=== PATIENT | female | born 1985 | race Two or more races ===

== ENCOUNTER 2023-05-23 15:56 | Emergency (ER) | payer OTHER ==
[~2023-05-23] VITALS: Ht 160 cm; Wt 72.6 kg
[2023-05-23] MEDS ORDERED: ATIVAN0.5 M1 PO (16:21)
[2023-05-23] MEDS ORDERED: ZOVIRAX400 MG PO (16:21)
[2023-05-23] MEDS ORDERED: CLOZARIL25 MG (16:21)
[2023-05-23] MEDS ORDERED: COL-RITE100 MG PO (16:22)
[2023-05-23] MEDS ORDERED: OXYBUTYNIN CHLOR5 M1 PO (16:22)
[2023-05-23] MEDS ORDERED: LAMOTRIGINE250 MG PO (16:22)
[2023-05-23] MEDS ORDERED: CLARITIN5 MG (16:22)
[2023-05-23 19:06] LABS: HEMATOCRIT 40.2 % (36.0-45.00); HEMOGLOBIN 13.7 g/dL (12.0-15.00); MEAN CELL VOLUME 89.9 fL (80.00-100.00); MEAN CORPUSCULAR HEMOGLOBIN 30.6 pg (27.00-32.0); PLATELET COUNT 222 K/uL (150-450); RED BLOOD COUNT 4.47 M/uL (4.00-6.00); RED CELL DISTRIBUTION WIDTH 12.8 % (11.5-14.5)
[2023-05-23 20:10] LABS: URINE APPEARANCE Clear; URINE BILIRRUBIN Negative (NEGATIVE); URINE BLOOD Trace; URINE COLOR Yellow; URINE GLUCOSE Negative (NEGATIVE); URINE LEUKOCYTE Negative; URINE NITRATE Negative; URINE PROTEIN Negative (NEGATIVE); URINE UROBILINOGEN 0.2 E.U./dl
[2023-05-23 20:13] LABS: URINE BACTERIA 1143.9 uL (0.0-1933); URINE EPITHELIAL CELLS 30.9 uL (0.0-38.8); URINE RBC 22.8 uL (0.0-20.8); URINE WBC 22.8 uL (0.0-23.2)
[2023-05-23 20:31] LABS: COCAINE NEGATIVE (NEGATIVE); METHADONE NEGATIVE (NEGATIVE); OPIATES NEGATIVE (NEGATIVE); THC ( Cannabinoids) NEGATIVE (NEGATIVE)
[2023-05-23 20:52] LABS: ALBUMIN 3.9 gm/dL (3.4-5.0); BILIRUBIN TOTAL 0.54 mg/dL (0.3-1.2); CALCIUM 9.1 mg/dL (8.5-10.1); CREATININE SERUM 0.7 mg/dL (0.55-1.02); GFR 93.16; GLOBULINA 2.6 G/DL (2.4-3.5); POTASSIUM 3.66 mEq/L (3.5-5.1); TOTAL PROTEIN 6.5 gm/dL (6.4-8.2)
== END 2023-05-24 11:17 | disposition home or self-care (01) ==
LOC: ER 15:56
DX: T50.901A Poisoning by unspecified drugs, medicaments and biological substances, accidental (unintentional), initial encounter (principal); Y92.89 Other specified places as the place of occurrence of the external cause; Z88.2 Allergy status to sulfonamides
CPT/HCPCS: 36415; 70450; 93005; 96365; 96366; 99285; J3490